=== PATIENT | male | born 1960 | race Caucasian/White ===

== ENCOUNTER → 2017-06-05 | Outpatient (CLI) | payer OTHER ==
[~2017-06-05] MED LIST: DOXE50CA3 PO; FLUT0.0529 NAE; FLV1 PO; FLX10 PO; GADAVIST IV PRN; LPD600 PO; METF1000 PO; NRN600 PO; NVLNI SQ; NVLRPUC SQ; POLY335019 PO; ROPI1TAB29 PO; RST75 PO; TRAZ50TA35 PO; ULT50 PO
--- NOTE | 2017-06-05 10:58 | DIAGNOSTIC IMAGING REPORT ---
LUMBAR SPINE COMBINATION HISTORY: Pain. PAST SPINAL INJURY INCREASED BACK TECHNIQUE: Multiplanar multisequence MRI of the lumbar spine was performed both before and after the intravenous administration of contrast. COMPARISON: None. FINDINGS: For the purpose of the report the L5-S1 disc space will be located on axial image 27 of 31. Findings consistent with interpedicular screw placement and decompression laminectomy from L3 through S1. Disc spaces are present throughout. Moderate reversal of the normal lumbar lordosis. No evidence for subluxation. No abnormal postcontrast sagittal enhancement. L1-L2: No significant central canal or neural foraminal narrowing. L2-L3: Minimal disc bulge. L3-L4: Posterior laminectomy and fusion. Evidence for anterior fixation L4-L5: Findings consistent with posterior laminectomy and fusion as well as anterior secondary fusion. No disc herniation or spinal stenosis. L5-S1: Findings consistent posterior laminectomy and fusion as well as anterior plate fixation. No disc herniation or spinal stenosis. IMPRESSION: 1. Findings consistent with posterior laminectomy and fusion from L3 through S1 with evidence for secondary anterior fixation. 2. Moderate reversal of the normal lumbar lordosis presumably secondary to muscular spasm. 3. Minimal broad-based disc bulge L2-L3 . 4. No evidence for recurrent disc herniation or spinal stenosis. 5. No evidence for abnormal postcontrast enhancement The above report was generated using voice recognition software. It may contain grammatical, syntax or spelling errors. Electronically signed by: Gianni Nassar M.D. 06/05/2017 10:56 AM Dictated Date/Time: 06/05/2017 10:50 AM
== END | disposition home or self-care (01) ==
PROVIDERS: ATTEND Pediatrics
DX: M96.1 Postlaminectomy syndrome, not elsewhere classified (principal)